=== PATIENT | female | born 1960 | race Caucasian/White ===

== ENCOUNTER 2017-04-23 08:13 | Emergency (ER) | payer BC ==
--- NOTE | 2017-04-23 08:25 | UC ---
Knee Pain HPI - HPI Summary HPI Summary: The patient comes in today for: 1. Right knee pain: Onset: 2 weeks ago. Palliative/provocative: Getting up from a chair makes it worse. Going up steps makes it worse. Quality: [place]: Right knee Severity: 9/10 with sitting. Time: Constant Associated symptoms: Injury: None. Previous treatment: Tylenol and ibuprofen (helped a "little bit"). Fevers: None. * - History of Current Complaint Stated Complaint: RT KNEE PAIN Time Seen by Provider: 04/23/17 08:17 Hx Last Menstrual Period: In menopause. - Allergies/Home Medications Allergies/Adverse Reactions: Allergies Allergy/AdvReac Type Severity Reaction Status Date / Time No Known Allergies Allergy Verified 04/23/17 08:39 Home Medications: Home Medications Citalopram TAB* [CeleXA TAB*] 10 mg PO DAILY 04/23/17 [History Confirmed ] Ferrous Sulfate TAB* 325 mg PO DAILY 04/23/17 [History Confirmed 04/23/17] Lisinopril TAB* [Prinivil TAB*] 5 mg PO DAILY 04/23/17 [History Confirmed ] PMH/Surg Hx/FS Hx/Imm Hx Previously Healthy: No Cardiovascular History: Hypertension Psychological History: Bipolar Disorder - Surgical History Surgical History: None - Family History Known Family History: Positive: Hypertension Negative: Cardiac Disease - Social History Occupation: Employed Full-time Alcohol Use: Rare Substance Use Type: None Smoking Status (MU): Never Smoked Tobacco Review of Systems Constitutional: Negative Skin: Negative Eyes: Negative ENT: Negative Respiratory: Negative Cardiovascular: Negative Gastrointestinal: Negative Genitourinary: Negative Musculoskeletal: Arthralgia All Other Systems Reviewed And Are Negative: Yes Physical Exam Triage Information Reviewed: Yes Appearance: Well-Appearing, No Pain Distress, Well-Nourished Vital Signs Reviewed: Yes Eyes: Positive: Conjunctiva Clear. Negative: Discharge ENT: Positive: Hearing grossly normal. Negative: Pharyngeal erythema, Nasal congestion, Nasal drainage, TM bulging, TM dull, TM red, Tonsillar swelling, Tonsillar exudate Dental: Negative: Gross Decay/Caries @, Dental Fracture @ Neck: Positive: Supple, Nontender, No Lymphadenopathy. Negative: Nuchal Rigidity Respiratory: Positive: Chest non-tender, Lungs clear, No respiratory distress, No accessory muscle use. Negative: Crackles, Wheezing Cardiovascular: Positive: RRR, No Murmur Abdomen Description: Positive: Nontender, No Organomegaly, Soft. Negative: Distended, Guarding Musculoskeletal: Positive: Strength Intact, ROM Intact, No Edema, Other: - Right knee: There is no effusion. There is no tenderness to palpation of the posterior capsule or the hamstring tendons. There is no laxity or soreness with stressing of the collateral or cruciate ligaments. There is no tenderness to palpation of the meniscii anterioarly or the pes anserinus bursa. There is tenderness with deviation movement of the patella and with range of motion of the knee with patellar pressure. Neurological: Positive: Alert, Muscle Tone Normal Psychological: Positive: Age Appropriate Behavior, Consolable Skin: Negative: rashes, breakdown Diagnostics - Radiology No standard instances Xray Interpretation: Positive (See Comments) - Osteoarthritis Radiology Interpretation Completed By: Radiologist Knee Pain Course/Dx - Differential Dx/Diagnosis Differential Diagnosis/HQI/PQRI: Bursitis, Sprain, Strain Provider Diagnoses: Right knee patell0-femoral syndrome Discharge - Discharge Plan Condition: Stable Disposition: HOME Patient Education Materials: Patellofemoral Pain Syndrome (ED) Referrals: Zacarias Alicea MD [Primary Care Provider] - 1 Week (Use Tylenol (no more than 3000 mg a day) regularly while having problems with pain. See your primary care provider after you have had physical therapy for 1-2 weeks. IF you get worse, please be seen sooner.)
[2017-04-23 08:38] VITALS: BP 130/79
--- NOTE | 2017-04-23 08:46 | RAD ---
HISTORY: Patellofemoral syndrome, right knee pain with use COMPARISONS: None VIEWS: 4, Frontal, lateral, axial, and oblique views of the right knee FINDINGS: BONE DENSITY: Normal. BONES: There is no displaced fracture. JOINTS: There is mild to moderate tricompartmental osteoarthritis. There is no suprapatellar joint effusion or lipohemarthrosis. ALIGNMENT: There is no dislocation. SOFT TISSUES: Unremarkable. OTHER FINDINGS: None. IMPRESSION: OSTEOARTHRITIS. NO ACUTE OSSEOUS INJURY. IF SYMPTOMS PERSIST, RECOMMEND REPEAT IMAGING.
== END 2017-04-23 09:18 | disposition home or self-care (01) ==
LOC: UCCORT 08:13
DX: M25.561 Pain in right knee (principal); I10 Essential (primary) hypertension; F31.9 Bipolar disorder, unspecified
CPT/HCPCS: 99211; G0463

== ENCOUNTER 2017-12-22 09:10 | Emergency (ER) | payer BC ==
[2017-12-22 10:03] VITALS: BP 156/100
--- NOTE | 2017-12-22 10:04 | UC ---
FLU HPI - HPI Summary HPI Summary: 57 y/o female presents to the urgent care c/o productive cough, SOB, NARANJO, body aches, fever, chills for the past 3 days. Pt reports symptoms started w/ nasal congestion and yellowish nasal discharge. Now Cough has worsen and w/ decrease appetite. She has taken Ibuprofen, and OTC cough syrup to alleviate symptoms. Pt denies chest pain, abdominal pain, N/V/D. Pt didn't take his HTN medication yet today. . - History of Current Complaint Stated Complaint: COLD SYMPTOMS Time Seen by Provider: 12/22/17 10:01 Hx Obtained From: Patient Hx Last Menstrual Period: In menopause. Onset/Duration: Gradual Onset, Lasting Days - 3 days, Still Present, Worse Since - yesterday Severity Currently: Moderate Severity Initially: Mild Pain Intensity: 4 - headache Pain Scale Used: 0-10 Numeric Associated Signs & Symptoms: Positive: Fever, Myalgia, Cough - dry, Nasal Congestion, Headache - Risk Factors Influenza Risk Factors: Negative - Allergy/Home Medications Allergies/Adverse Reactions: Allergies Allergy/AdvReac Type Severity Reaction Status Date / Time No Known Allergies Allergy Verified 12/22/17 10:03 PMH/Surg Hx/FS Hx/Imm Hx Previously Healthy: Yes Other Endocrine History: Anemia Cardiovascular History: Hypertension Psychological History: Bipolar Disorder - Surgical History Surgical History: None - Family History Known Family History: Positive: Hypertension Negative: Cardiac Disease - Social History Occupation: Employed Full-time Lives: With Family Alcohol Use: Rare Substance Use Type: None Smoking Status (MU): Never Smoked Tobacco Review of Systems Constitutional: Fever, Chills, Fatigue, Other - body aches Skin: Negative Eyes: Negative ENT: Nasal Discharge, Sinus Congestion Respiratory: Shortness Of Breath, Cough - dry Cardiovascular: Negative Gastrointestinal: Negative Genitourinary: Negative Motor: Negative Neurovascular: Negative Musculoskeletal: Negative Neurological: Headache Psychological: Negative Is Patient Immunocompromised?: No All Other Systems Reviewed And Are Negative: Yes Physical Exam Triage Information Reviewed: Yes - Additional Comments VITAL SIGNS: Reviewed. GENERAL: Patient is a well developed and nourished female who is sitting comfortable in the examining table. Patient is not in any acute respiratory distress. HEAD AND FACE: No signs of trauma. No ecchymosis, hematomas or skull depressions. No sinus tenderness. edematous erythematous nasal mucosa with yellowish discharge, EYES: PERRLA, EOMI x 2, No injected conjunctiva, clear watery eyes, no nystagmus. No photophobia. EARS: Hearing grossly intact. Ear canals and tympanic membranes are within normal limits. MOUTH: Positive pharynx with erythema, no exudates,no palatal petechiae. no B/L tonsillar enlargement Uvula in midline. NECK: Supple, trachea is midline, Positive anterior cervical lymphadenopathy, no JVD, no carotid bruit, no c-spine tenderness, neck with full ROM. No meningeal signs, no Kernig's or brudzinskis signs. CHEST: Symmetric, no tenderness at palpation LUNGS: Respiratory: no orthopnea or dyspnea. Able to speak in full sentences, no retractions or accessory muscle use, no tripod position, stridor, or head bobbing. breasth sound presents, B/L posterior lungs w/ scattered rhonchi and mild wheezing, no crackles or , rales. CVS: Regular rate and rhythm, S1 and S2 present, no murmurs or gallops appreciated. ABDOMEN: Soft, non-tender. No signs of distention. No rebound no guarding, and no masses palpated. Bowel sounds are normal. EXTREMITIES: FROM in all major joints, no edema, no cyanosis or clubbing. NEURO: Alert and oriented x 3. No acute neurological deficits. Speech is normal and follows commands. SKIN: Dry and warm Flu Course/Dx - Course Course Of Treatment: 57 y/o female presents to the urgent care c/o productive cough, SOB, NARANJO, body aches, fever, chills for the past 3 days. Pt reports symptoms started w/ nasal congestion and yellowish nasal discharge. Now Cough has worsen and w/ decrease appetite. She has taken Ibuprofen, and OTC cough syrup to alleviate symptoms. Pt denies chest pain, abdominal pain, N/V/D. Pt didn't take her HTN medication yet today. Hx obtained. Pt w/ Posterior upper lungs w/ scattered rhonchi and mild wheezing. Rapid influenza A&B ordered. Influneza B positive. Pt given Prednisone and Albuterol Treatment given to patient. Patient tolerated well treatment and lungs improved, mild wheezing only in posterior LF lung, O2 sat 100%. Chest X-ray ordered: impression, Large diaphragmatic hernia on the left side and small pleural effusion vs. pleural thickening as per radiologist. Pt's symptoms discussed w/ Dr Heath and he recommeded ABX treatment and Tamiflu PO and f/u w/ PCP in 2-3 days for further management. Patient prescribed Doxycycline PO, Tamiflu PO, Prednisone and Albuterol inhaler as directed below. The patient was recommended to increase fluid intake. Take medications as recommended. Strongly advised to go to the ER if worsening of symptoms for further management. Otherwise f/u with PCP in 2-3 days. Pt's BP is elevated today advised to decrease salt in diet, monitor BP and f/u with PCP for further management. Patient understood and agreed w/ plan of care. - Differential Dx/Diagnosis Differential Diagnosis/HQI/PQRI: Bronchitis, Influenza, Pneumonia, Upper Respiratory Infection Provider Diagnoses: 1- Influenza B. 2-Bronchitis. 2- Uncontrolled HTN - Physician Notifications Discussed Patient Care With: Ryan Heath - DR Heath agreed w/ Pt's plan of care Discharge - Discharge Plan Condition: Stable Disposition: HOME Prescriptions: Albuterol HFA INHALER* [Ventolin HFA Inhaler*] 1 - 2 puff INH Q6H PRN #1 mdi PRN Reason: Cough Benzonatate CAP* [Tessalon 100 MG CAP*] 100 mg PO TID PRN #21 cap PRN Reason: Cough DOXYcycline CAP(*) [DOXYcycline 100MG CAP(*)] 100 mg PO BID #20 cap Oseltamivir CAP* [Tamiflu CAP*] 75 mg PO BID #10 cap Patient Education Materials: Influenza (ED), Low-Sodium Diet (ED), Pneumonia ( ED) Forms: *Work Release Referrals: Zacarias Alicea MD [Primary Care Provider] - 3 Days Additional Instructions: 1-Please take full course of antibiotic to avoid resistance. 2-Take Tessalon PO tabs as directed and use the albuterol inhaler to alleviate cough. Increase fluid intake, rest and eat well. 3- If symptoms do not improve or worsen or your develop SOB with fever and severe wheezing please go immediately to the ER further evaluation and treatment. 4- F/u with your PCP in 2-3 weeks for repeat X-ray to see if complete resolution of symptoms and further management. 5-Your BP is elevated today. please decrease salt in your diet, monitor BP and if it continues to be elevated please f/u with your PCP for further management
[2017-12-22] MEDS ORDERED: Albuterol 2.5 MG/3 ML NEB.SOL* (0.083%) INH ONE (10:14)
--- NOTE | 2017-12-22 10:56 | RAD ---
INDICATION: Shortness of breath productive cough and fever. COMPARISON: There are no prior studies available for comparison. TECHNIQUE: Dual-energy PA and lateral views of the chest were obtained. FINDINGS: The heart is within normal limits in size. Mediastinal and hilar contours appear within normal limits. There is a diaphragmatic hernia on the left side which appears to take contain colon less likely stomach. The lungs are grossly clear. There is blunting of the left costophrenic angle suggestive of a small pleural effusion or pleural thickening. IMPRESSION: 1. LARGE DIAPHRAGMATIC HERNIA ON THE LEFT SIDE. 2. SMALL LEFT PLEURAL EFFUSION VERSUS PLEURAL THICKENING.
== END 2017-12-22 11:14 | disposition home or self-care (01) ==
LOC: UCCORT 09:10
DX: J10.1 Influenza due to other identified influenza virus with other respiratory manifestations (principal); J40 Bronchitis, not specified as acute or chronic; I10 Essential (primary) hypertension
CPT/HCPCS: 71046; 87502; 99212; G0463

== ENCOUNTER 2022-08-25 12:08 | Inpatient (IN) ==
[2022-08-26 09:55] LABS: HDL Cholesterol 72.5 mg/dL
[2022-08-26] MEDS: Latanoprost 0.005% 2.5 ml BTL BOTH EYES SCH (20:09)
[2022-08-27 07:56] LABS: ABS Eosinophils 0.3 10^3/ul (0-0.6); ABS Lymphocytes 1.7 10^3/ul (1.0-4.8); ABS Monocytes 0.4 10^3/ul (0-0.8); ABS Neutrophils 5.4 10^3/ul (1.5-7.7); Eosinophil % 3.8 %; Hematocrit 37 % (35-47); Mean Corpuscular HGB Conc 33 g/dL (31-36); Mean Corpuscular Hemoglobin 29 pg (27-31); Mean Corpuscular Volume 89 fL (80-97); Mean Platelet Volume 7.2 fL (7.4-10.4); Platelet Count 270 10^3/uL (150-450); Red Cell Distribution Width 14 % (10-15); White Blood Count 7.9 10^3/uL (3.5-10.8)
[2022-08-27 09:43] LABS: TSH Ultra Thyroid Stim Horm 5.29 mcIU/mL (0.34-5.60)
[2022-08-27] MEDS: Multivitamins/Minerals TAB PO SCH (09:45)
[2022-08-27] MEDS: Cholecalciferol (VIT D3) 400 units TAB PO SCH (09:45)
[2022-08-27 09:48] LABS: Albumin 3.9 g/dL (3.2-5.2); Calcium 9.8 mg/dL (8.6-10.3); Lithium 1.07 mmol/L (0.6-1.2); Potassium 4.5 mmol/L (3.5-5.0); Total Bilirubin 0.4 mg/dL (0.2-1.0)
[2022-08-27] MEDS: Timolol 0.5% OPTH.SOL BTL OPHTHALMIC SCH (09:49)
[2022-08-27 09:54] LABS: Albumin/Globulin Ratio 1.7 (1-3); Globulin 2.3 g/dL (2-4); Total Protein 6.2 g/dL (6.4-8.9); eGFR CKD-EPI 91.7 (>60)
[2022-08-27] MEDS: Al Hydrox/Mg Hydrox/Simet LIQ 30 ML UDC PO PRN (14:07)
[2022-08-27] MEDS: Latanoprost 0.005% 2.5 ml BTL BOTH EYES SCH (20:12)
[2022-08-28] MEDS: Multivitamins/Minerals TAB PO SCH (08:19)
[2022-08-28] MEDS: Timolol 0.5% OPTH.SOL BTL OPHTHALMIC SCH (08:19)
[2022-08-28] MEDS: Cholecalciferol (VIT D3) 400 units TAB PO SCH (08:19)
[2022-08-28] MEDS: Al Hydrox/Mg Hydrox/Simet LIQ 30 ML UDC PO PRN (17:36)
[2022-08-28] MEDS: Latanoprost 0.005% 2.5 ml BTL BOTH EYES SCH (20:05)
[2022-08-29] MEDS: Timolol 0.5% OPTH.SOL BTL OPHTHALMIC SCH (09:02)
[2022-08-29] MEDS: Cholecalciferol (VIT D3) 400 units TAB PO SCH (09:02)
[2022-08-29] MEDS: Multivitamins/Minerals TAB PO SCH (09:02)
[2022-08-29 13:06] VITALS: BP 101/48
== END 2022-08-29 16:45 | disposition home or self-care (01) | DRG 753 ==
LOC: ED 12:08 → EDHOLD 14:32 → BSU 18:09
PROVIDERS: ADMIT Psychiatry & Neurology Psychiatry; ATTEND Psychiatry & Neurology Psychiatry